=== PATIENT | female | born 1975 | race Caucasian/White ===

== ENCOUNTER 2022-01-02 13:47 | Outpatient (REF) | payer OTHER, SELFPAY ==
[2022-01-02 23:25] LABS: CT PCR NOT DETECTED (Not Detect.); NG PCR NOT DETECTED (Not Detect.)
[2022-01-03 13:20] LABS: BV Int Neg Control Negative (Negative); BV Int Pos Control Positive (Positive)
[2022-01-05 14:23] LABS: HPV mRNA E6/E7 rflx Not Detected (Not Detected)
== END 2022-01-02 13:48 | disposition home or self-care (01) ==
LOC: HO.LAB 13:47
PROVIDERS: Visit Provider Advanced Practice Midwife
DX: Z01.419 Encounter for gynecological examination (general) (routine) without abnormal findings (principal); Z11.51 Encounter for screening for human papillomavirus (HPV); Z20.2 Contact with and (suspected) exposure to infections with a predominantly sexual mode of transmission
CPT/HCPCS: 87480; 87491; 87510; 87591; 87624; 87660; 88142

== ENCOUNTER 2022-01-30 07:57 | Outpatient (REF) | payer OTHER, SELFPAY ==
--- NOTE | ~2022-01-30 | MM_ITS ---
EXAMINATION: MM SCREENING DIGITAL BREAST TOMOSYNTHESIS, BILATERAL CLINICAL INFORMATION: Screening. Asymptomatic. The lifetime risk of breast cancer based on the Tyrer-Cuzick Model is 10.7%. COMPARISON: Mammography: None TECHNIQUE: Digital breast tomosynthesis is performed in both the craniocaudal and mediolateral oblique views along with computer-aided detection (CAD). Synthesized 2D images are generated from the tomosynthesis. FINDINGS: There are scattered areas of fibroglandular density (ACR BI-RADS breast composition Category b). There are no significant masses, abnormal calcifications, or other abnormalities. MM/MM tomosynthesis screening BI IMPRESSION: There are no significant changes from prior study. ASSESSMENT: BI-RADS 1: Negative RECOMMENDATION: Routine annual mammography screening. This patient's information was entered into a reminder system with a target due date for their next mammogram.
== END 2022-01-30 07:58 | disposition home or self-care (01) ==
LOC: HO.MAMMO 07:57
PROVIDERS: PCP Family Medicine; Visit Provider Advanced Practice Midwife
DX: Z12.31 Encounter for screening mammogram for malignant neoplasm of breast (principal)
CPT/HCPCS: 77063; 77067

== ENCOUNTER 2023-01-06 11:32 | Outpatient (REF) | payer OTHER, SELFPAY ==
[2023-01-07 12:30] LABS: BV Int Neg Control Negative (Negative); BV Int Pos Control Positive (Positive)
== END 2023-01-06 11:33 | disposition home or self-care (01) ==
LOC: HO.LNP 11:32
PROVIDERS: PCP Family Medicine; Visit Provider Advanced Practice Midwife
DX: Z01.419 Encounter for gynecological examination (general) (routine) without abnormal findings (principal); N89.8 Other specified noninflammatory disorders of vagina; E66.9 Obesity, unspecified
CPT/HCPCS: 87480; 87510; 87660

== ENCOUNTER 2023-03-26 11:05 | Outpatient (REF) | payer OTHER, SELFPAY | END 2023-03-26 11:06 | disposition home or self-care (01) | LOC: HO.LNP 11:05 | PROVIDERS: PCP Family Medicine; Visit Provider Advanced Practice Midwife | DX: N93.9 Abnormal uterine and vaginal bleeding, unspecified (principal) | CPT/HCPCS: 81025 ==

== ENCOUNTER 2023-03-26 12:09 | Outpatient (REF) | payer OTHER, SELFPAY ==
[2023-03-26 12:30] LABS: Hemoglobin 14.5 g/dl (12.0-16.0); Mean Corpuscular Hemoglobin 29.7 pg (27.0-33.0); Mean Corpuscular Volume 90.2 fL (80.0-98.0); Mean Platelet Volume 10.3 fL (9.4-12.3); Platelet Count 179 X10*3/uL (160-400); Red Blood Count 4.88 X10*6/uL (4.20-5.50); White Blood Count 5.7 X10*3/uL (4.8-10.8)
[2023-03-26 13:19] LABS: TSH reflex Free T4 2.51 uIU/mL (0.32-4.0)
[2023-03-26 18:44] LABS: CT PCR NOT DETECTED (Not Detect.); NG PCR NOT DETECTED (Not Detect.)
[2023-03-28 09:54] LABS: Follicle Stimulating Hormone 53.9 mIU/mL; Lutenizing Hormone 16.3 mIU/mL
== END 2023-03-26 12:10 | disposition home or self-care (01) ==
LOC: HO.LAB 12:09
PROVIDERS: PCP Family Medicine; Visit Provider Advanced Practice Midwife
DX: N93.9 Abnormal uterine and vaginal bleeding, unspecified (principal); Z20.2 Contact with and (suspected) exposure to infections with a predominantly sexual mode of transmission
CPT/HCPCS: 0353U; 83001; 83002; 84443; 85027

== ENCOUNTER 2023-03-27 13:46 | Outpatient (REF) | payer OTHER, SELFPAY ==
--- NOTE | ~2023-03-27 | US_ITS ---
EXAMINATION: US PELVIS TRANSVAGINAL CLINICAL INFORMATION: Abnormal uterine and vaginal bleeding. COMPARISON: OB ultrasound of 12/26/2011 TECHNIQUE: Transcutaneous and transvaginal pelvic ultrasound. Transvaginal scanning was performed after voiding to better evaluate the endometrium and adnexa. FINDINGS: The uterus measures 9.2 x 3.0 x 5.1 cm. The uterus is anteverted. No suspicious abnormalities region of the cervix. The uterine contour is smooth. The endometrium measures 0.4 cm. No evidence of endometrial polyp. About the left uterine body myometrium there is a 6 x 6 x 6 mm hypoechoic lesion with appearance of small fibroid. This does not appear to be adjacent to the endometrium. About the mid anterior fundus there is a 1.3 x 1.0 x 1.1 cm heterogeneous and hypoechoic lesion which abuts the endometrium in a submucosal location. The right ovary measures approximately 2.3 x 1.0 x 1.7 cm. The calculated right ovarian volume is approximately 2.0 mL. No abnormal adnexal findings. The left ovary measures 2.2 x 1.4 x 1.9 cm. The calculated left ovarian volume is approximately 3.0 mL. No abnormal adnexal findings. No free pelvic fluid. US/US pelvic and transvaginal IMPRESSION: Small uterine fibroids with fundal fibroid being submucosal in location.
== END 2023-03-27 13:47 | disposition home or self-care (01) ==
LOC: HO.HMGCX 13:46
PROVIDERS: PCP Family Medicine; Visit Provider Advanced Practice Midwife
DX: N93.9 Abnormal uterine and vaginal bleeding, unspecified (principal)
CPT/HCPCS: 76830; 76856

== ENCOUNTER → 2023-04-11 11:37 | Outpatient (BNVA) | payer OTHER, SELFPAY | PROVIDERS: PCP Family Medicine; Visit Provider Advanced Practice Midwife ==

== ENCOUNTER → 2023-05-08 07:59 | Outpatient (BNVA) | payer OTHER, SELFPAY | PROVIDERS: PCP Family Medicine; Visit Provider Obstetrics & Gynecology ==

== ENCOUNTER 2023-06-12 09:21 | Outpatient (REF) | payer OTHER, SELFPAY ==
[2023-06-12 10:48] LABS: Estimated Average Glucose 97 mg/dL
[2023-06-12 11:10] LABS: Anion Gap 16 (12-20); Blood Urea Nitrogen 15 mg/dL (9-16); Carbon Dioxide 22 mmol/L (22-29); Chloride 107 mmol/L (96-108); Estimated Glomerular Filt Rate > 60; Glucose Fasting 91 mg/dL (60-99); Potassium 4.5 mmol/L (3.3-5.1); Sodium 140 mmol/L (135-145)
== END 2023-06-12 09:22 | disposition home or self-care (01) ==
LOC: HO.LAB 09:21
PROVIDERS: PCP Family Medicine; Visit Provider Family Medicine
DX: I10 Essential (primary) hypertension (principal); E66.9 Obesity, unspecified; R73.9 Hyperglycemia, unspecified
CPT/HCPCS: 36415; 80051; 82565; 82947; 83036; 84520

== ENCOUNTER 2023-08-20 11:22 | Outpatient (REF) | payer OTHER, SELFPAY ==
--- NOTE | ~2023-08-20 | XR_ITS ---
EXAMINATION: XR LUMBOSACRAL SPINE CLINICAL INFORMATION: 48-year-old with back pain. COMPARISON: 03/06/2017 x-rays. TECHNIQUE: Three views of the lumbosacral spine. FINDINGS: There is 3 mm of 5 grade 1 anterior spondylolisthesis at L3-L4, stable in appearance. Otherwise, the lumbosacral spine is anatomically aligned, stable in appearance with stable vertebral body heights and no interval compression fractures. Multilevel bilateral lower lumbar facet arthropathy is largely stable in appearance. The intervertebral disc space heights are well maintained, stable in appearance. There is anterior marginal spondylosis at T11-T12, unchanged with focal calcification of the anterior longitudinal ligament. The visualized SI joints are symmetric and intact and stable in appearance. XR/XR lumbar spine 2-3V IMPRESSION: 1. [id number]-[id number] degrees of bilateral lower lumbar facet arthropathy, similar to the previous exam. 2. No significant disc space height loss. 3. Stable mild grade 1 spondylolisthesis at L3-L4.
== END 2023-08-20 11:23 | disposition home or self-care (01) ==
LOC: HO.XRAY 11:22
PROVIDERS: PCP Family Medicine; Visit Provider Family Medicine
DX: M54.50 Low back pain, unspecified (principal)
CPT/HCPCS: 72100

== ENCOUNTER 2025-08-23 09:22 | Outpatient (AMB) | payer OTHER, SELFPAY ==
--- NOTE | 2025-08-23 09:09 | A.OFFPC_ITS ---
Vital Signs 08/23/25 09:28 Height 5 ft 4 in Weight 218 lb BMI 37.4 BP 126/88 Blood Pressure Location Lt brachial Position Sitting Respiration 18 Pulse 78 Pulse Source Pulse Oximeter Temp 97.9 F Temp Source Temporal Artery Scan Pulse Oximetry (%) 97 Oxygen Delivery Method Room Air Intake Visit Reasons: Physical - Dr. Wasserman pt. 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: No Accompanied by: Self / Same As Patient Allergies No Known Allergies Allergy (Verified 08/23/25 09:09) Tobacco use date assessed: 08/23/25 Dental Screening Dental Screen Date: 08/23/25 Did you have a dental visit in the last 12 months?: Yes Did you have a dental problem in the last 6 months where you did not have access to dental care?: No Was dental information given to patient?: Patient has dentist HPI HPI Comments History of Present Illness Details The patient is a 50-year-old female presenting with multiple concerns including significant shoulder pain, depressive symptoms, anxiety, and menopau maryjo complaints. She reports the shoulder pain began several weeks ago after she attempted to help her father up after a fall, potentially straining her shoulder. The pain, which she describes as a ?zinging? sensation, persists despite the application of ice and has not improved over time. The pain intensifies with certain movements, particularly in the shoulder's back motion. The patient also reports experiencing emotional instability, frequently crying and feeling overwhelmed due to stressors in her life, including her father's recent illness and hospitalization, a demanding job, and personal transitions like moving home and selling a house. She acknowledges worsening anxiety and depressive symptoms over the past month, including loss of interest in activities, persistent feelings of sadness and hopelessness, fatigue, and poor concentration. Her anxiety is characterized by restlessness and irritability. Additionally, the patient has not menstruated due to menopause and describes sym ptoms consistent with menopausal syndrome, including weight gain and hot flashes. Notably, she has a medical history of chronic back pain related to lumbar disc issues, which previously led to limitations in her ability to run?a favored form of exercise and stress relief. Medical History: - Major Depressive Disorder treated with lorazepam in the past - Generalized Anxiety Disorder - Menopausal Syndrome - Chronic Back Pain due to Lumbar Disc D isplacement at L5-L6 - History of Anxiety and Depression - Calcium buildup at the elbow causing s welling Surgical History: - Elbow surgery for calcium buildup Medications: - Lorazepam: previously used for anxiety management - Ativan: previously used for anxiety ma nagement Family History: - Father with history of recent heart at tack - Father with diabetes - No family history of cancer - Brother , relevant psychiatric history unknown Social: - 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 - Family Status: Primary caregiver for i ll father; brother passed in 2007 - Substance Use: Uses marijuana edibles; denies cigarette use - Exercise: Limited due to back pain; pr eviously engaged in running - Stressors: High job stress, caregiver responsibilities for father - Lifestyle: Experienced significant caroline ght gain related to menopause PFS Medical History (Updated 08/23/25 @ 10:09 by Patrick Caballero MD) Left shoulder pain Major depressive disorder Generalized anxiety disorder Depression with anxiety Right elbow tendonitis Social History Housing: House Patient Tobacco Use Status: Never used Tobacco e-Cigarette/Vaping Use: Never Used service: No Current occupational status: employed Current occupation: [employer] Female Reproductive History Menstrual Age of Menarche: 13 Questionnaire PHQ-9 Over the last 2 weeks, how often have you been bothered by any of the following problems? 1. Little interest or pleasure in doing things: nearly every day 2. Feeling down, depressed, or hopeless: nearly every day 3. Trouble falling or staying asleep, or sleeping too much: nearly every day 4. Feeling tired or having little energy: nearly every day 5. Poor appetite or overeating: nearly every day 6. Feeling bad about yourself - or that you are a failure or have let yourself or your family down: nearly every day 7. Trouble concentrating on things, such as reading the newspaper or watching television: more than half the days 8. Moving or speaking so slowly that other people could have noticed. Or the opposite - being so fidgety or restless that you have been moving around a lot more than usual: not at all 9. Thoughts that you would be better off or of hurting yourself in some way: several days Total score: 21 Depression Screening Interpretation: Positive Depression Screening Done: Yes 30799 - PHQ-9 Billing: Yes Source: Developed by Drs. Jd L. Tanisha Garcia Kurt Kroenke and colleagues, with an educational susan from [employer]. Thrive Questionnaire Date Thrive assessed: 08/23/25 I am a: Patient What is your living situation today?: I have a steady place to live Within the past 12 months, did the food you bought not last and you didn't have the money to get more?: Never true Within the past 12 months, did you worry whether your food would run out before you got money to buy more?: Never true Do you have trouble paying for medicines?: No Do you have trouble getting transportation to medical appointments?: No Do you have trouble paying your heating and electricity bill?: No Do you have trouble taking care of your child, family member or friend?: No Do you have trouble with day-to-day activities such as bathing, preparing meals, shopping, managing finances, etc.?: No Are you currently unemployed and looking for a job?: No Are you interested in more education?: No THRIVE Score: 0 AUDIT C Alcohol Use Questionnaire (AUDIT-C) 1. How often do you have a drink containing alcohol?: Monthly or less 2. How many drinks containing alcohol do you have on a typical day when you are drinking?: 1 or 2 3. How often do you have six or more drinks on one occasion?: Never Total Score: 1 Score Reviewed/Action Taken: Yes EVELYNE-7 AMB Questionnaire EVELYNE-7 Date EVELYNE - 7 assessed: 08/23/25 Feeling nervous, anxious, or on edge: 3 = Nearly every day Not being able to stop or control worryin = Nearly every day Worrying too much about different things: 3 = Nearly every day Trouble relaxin = Several days Being so restless that it is hard to sit still: 3 = Nearly every day Becoming easily annoyed or irritable: 3 = Nearly every day Feeling afraid as if something awful might happen: 3 = Nearly every day Total EVELYNE-7 score (0-4 normal; 5-9 mild; 10-14 moderate; 15-21 severe): 19 Source: Developed by Tanisha Green, Bean Lopez and colleagues, with an educational susan from [employer]. EVELYNE-7 Assessment Billing EVELYNE-7 Assessment Tool: EVELYNE-7 Assessment 45444 Review of Systems Const Details: - Musculoskeletal: Reports severe shoulder pain, chronic back pain - Psychiatric: Reports daily feelings of sadness, anxiety, emotional lability, decreased interest and pleasure in activities, irritability, and consistent restlessness - Neurological: Reports difficulty concentrating - Metabolic/Endocrine: Reports weight gain, hot flashes All systems reviewed & are unremarkable except as reviewed in HPI and above Physical exam (Primary Care) Vital Signs: Last Vital Signs Temp 97.9 F 08/23/25 09:28 Pulse 78 08/23/25 09:28 Resp 18 08/23/25 09:28 BP 126/88 08/23/25 09:28 Pulse Ox 97 08/23/25 09:28 Oxygen Delivery Method Room Air 08/23/25 09:28 BMI result Body Mass Index 37.4 Tobacco/Smoking Status: Tobacco use Status Tobacco use date assessed 08/23/25 08/23/25 09:10 Patient Tobacco Use Status Never used Tobacco 08/23/25 09:10 e-Cigarette/Vaping Use Never Used 08/23/25 09:10 Depression Screening Interpretation: Positive Const Other: General: +Alert and oriented, Well nourished, No acute distress. Eye: Pupils are equal, round and reactive to light, Intact accommodation, Extraocular movements are intact, Normal conjunctiva, Vision unchanged. HENT: Normocephalic, Atraumatic, Tympanic membranes are clear, Normal hearing, Oral mucosa is moist, No pharyngeal erythema, Ear canals patent. Respiratory: Lungs CTA bilaterally, No wheeze, Respirations are non-labored. Cardiovascular: Regular rate, Regular rhythm, S1 auscultated, S2 auscultated, No murmur, Good pulses equal in all extremities, Normal peripheral perfusion, No edema. Gastrointestinal: Soft, Non-tender, Non-distended, Normal bowel sounds, No organomegaly. Musculoskeletal: Limited range of motion in the shoulder, Pain in the shoulder, No swelling, No deformity, Normal gait. Integumentary: Warm, Dry, [place], Intact, Stable mole on the back of the neck. Neurologic: Alert, Oriented, Normal sensory, Normal motor function, No focal defects, Cranial Nerves II-XII are grossly intact, Normal deep tendon reflexes. Psychiatric: Cooperative, Mood is depressed and anxious, Normal judgment. Coding Level of Care Code New Pt Level 4 (08887) Diagnoses Generalized anxiety disorder F41.1 Severe episode of recurrent major depressive disorder, without psychotic features F33.2 Major depression recurrence: recurrent Active/Remission status: currently active Major depression episode severity: severe Psychotic features: without psychotic features Acute pain of left shoulder M25.512 Chronicity: acute Additional Codes PHQ-9 - 36894 - PHQ-9 Billing: Yes ([id number]) EVELYNE-7 Assessment Billing - EVELYNE-7 Assessment Tool: EVELYNE-7 Assessment 29375 ([id number]) Assessment & Plan Assessment & Plan (1) Generalized anxiety disorder: Comment: - Utilize sertraline for anxiety management, addressing both depressive and anxiety symptoms. - Encourage contacting a therapist familiar with patient's history for further psychological intervention. Code(s): F41.1 - Generalized anxiety disorder Category: Medical (2) Major depressive disorder: Comment: - Initiate sertraline 50 mg once daily, recognizing the delayed onset of 6 weeks. - Prescribe lorazepam (Ativan) as a bridge for anxiety management, limited to 15 pills. - Recommend contact with previous therapist for psychological support. Code(s): F32.9 - Major depressive disorder, single episode, unspecified Category: Medical Qualifiers: Major depression recurrence: recurrent Active/Remission status: currently active Major depression episode severity: severe Psychotic features: without psychotic features Qualified Code(s): F33.2 - Major depressive disorder, recurrent severe without psychotic features (3) Left shoulder pain: Comment: - Prescribe cyclobenzaprine for muscle relaxation; advise against concurrent use with Ativan. - Recommend continuation of ice application and regular shoulder movement. - Re-evaluate if persistent pain or functional limitations develop. Code(s): M25.512 - Pain in left shoulder Category: Medical Qualifiers: Chronicity: acute Qualified Code(s): M25.512 - Pain in left shoulder Plan: Healthcare Maintenance: - Discussed necessity of colonoscopy for cancer screening, recognizing procedural concerns. - Encouraged lifestyle modifications to aid in menopause symptom management. Patient was informed and verbally consented to the use of an ambient scribe for clinic note documentation during this visit. Plan I discussed with the patient her multiple ongoing concerns including shoulder pain, depressive and anxiety symptoms, and menopausal management. We reviewed the initiation of sertraline as a long-term solution for her depression and anxiety, emphasizing the delayed onset. I prescribed a limited quantity of lorazepam to manage acute anxiety given her aversion to medications but recognizing her current acute needs. We examined the shoulder, suggesting cyclobenzaprine to ease muscle tension. I advised on health maintenance screenings like colonoscopy to mitigate her anxiety about the procedure. I acknowledged the stress linked to caregiving duties and suggested professional therapy revisitation for emotional support. I encouraged self-care and task delegation to lessen her burdens. Orders: Orders Complete Blood Count Auto Diff Today Z76.89 - Persons encountering health services in other specified circumstances Hemoglobin A1c Today Z76.89 - Persons encountering health services in other specified circumstances Hepatitis A,B,C Profile Today Z76.89 - Persons encountering health services in other specified circumstances Estrogen Today Z76.89 - Persons encountering health services in other specified circumstances Comprehensive Met. Panel Today Z76.89 - Persons encountering health services in other specified circumstances HIV Ab/Ag Today Z76.89 - Persons encountering health services in other specified circumstances Lipid Panel Today Z76.89 - Persons encountering health services in other specified circumstances Syphilis Screen Today Z76.89 - Persons encountering health services in other specified circumstances TSH reflex Free T4 Today Z76.89 - Persons encountering health services in other specified circumstances Vitamin D 25-OH Total Today Z76.89 - Persons encountering health services in other specified circumstances Follicle Stimulating Hormone Today Z76.89 - Persons encountering health services in other specified circumstances Lutenizing Hormone Today Z76.89 - Persons encountering health services in other specified circumstances Referrals Psychiatry Referral F41.8 - Other specified anxiety disorders Medications: New cyclobenzaprine 5 mg PO TID PRN 30 tabs 0RF muscle spasm lorazepam (Ativan) 0.5 mg PO DAILY PRN 15 tabs 0RF anxiety sertraline 50 mg PO DAILY 90 tabs 0RF Patient Instructions: - Begin taking sertraline 50 mg daily for depression and anxiety. - Use lorazepam sparingly, only when necessary for severe anxiety. - Apply ice and continue movement exercises for shoulder pain. - Avoid using lorazepam and cyclobenzaprine at the same time. - Schedule and attend necessary lab work to evaluate hormonal status. - Contact therapist for emotional support. - Consider assessing options for family medical leave to alleviate work stress.
[2025-08-23 09:28] VITALS: BP 126/88; PULSE 78; RESP 18; TEMP 36.6; O2SAT 97; BMI 37.4
== END 2025-08-23 10:09 | disposition home or self-care (01) ==
PROVIDERS: PCP Student in an Organized Health Care Education/Training Program; Visit Provider Student in an Organized Health Care Education/Training Program
DX: F41.1 Generalized anxiety disorder (principal); F33.2 Major depressive disorder, recurrent severe without psychotic features; M25.512 Pain in left shoulder

== ENCOUNTER 2025-08-23 10:07 | Outpatient (REF) | payer OTHER, SELFPAY ==
[2025-08-23 13:15] LABS: MANUAL DIFF FLAG NO
[2025-08-23 13:37] LABS: Hematocrit 42.8 % (37.0-47.0); Hemoglobin 14.0 g/dl (12.0-16.0); Imm Gran Abs Auto 0.02 X10*3/uL (0.00-0.03); Imm Gran Pct Auto 0.3 % (0.0-0.4); Lymphocytes Absolute Auto 2.3 X10*3/uL (1.2-4.9); Mean Corpuscular HGB Conc 32.7 g/dl (31.0-35.0); Mean Corpuscular Hemoglobin 29.6 pg (27.0-33.0); Mean Corpuscular Volume 90.5 fL (80.0-98.0); NRBC Abs Auto 0.000 X10*3/uL (0.0-0.012); NRBC Pct Auto 0.0 /100WBC (0.0-0.2); Platelet Count 176 X10*3/uL (160-400); Red Blood Count 4.73 X10*6/uL (4.20-5.50); White Blood Count 7.5 X10*3/uL (4.8-10.8)
[2025-08-23 14:03] LABS: Alanine Aminotransferase 24 U/L (0-31); Albumin Level 4.7 g/dL (3.5-5.0); Anion Gap 12 (12-20); Aspartate Amino Transferase 18 U/L (5-31); Blood Urea Nitrogen 13 mg/dL (9-16); Calcium 9.4 mg/dL (8.4-10.2); Carbon Dioxide 27 mmol/L (22-29); Chloride 109 mmol/L (96-108); Cholesterol 184 mg/dL (<200); Estimated Glomerular Filt Rate > 60; HDL Cholesterol 58 mg/dL (>40); Potassium 4.1 mmol/L (3.3-5.1); Sodium 144 mmol/L (135-145); Total Protein 7.2 g/dL (6.5-8.0); Triglycerides 72 mg/dL (<150)
[2025-08-23 14:16] LABS: Alkaline Phosphatase 62 U/L (39-117)
[2025-08-24 03:13] LABS: Syphilis Screen Nonreactive (Nonreactive)
[2025-08-24 04:03] LABS: HBS Num1 0.37 mIU/mL (0-7.99); HBc Num1 0.05 S/CO (0.00-0.79); HBsAGNum1 0.41 S/CO (0.00-0.99); HIV Num 1 0.05 S/CO (0.00-0.99); Hepatitis A Antibody IgM 0.18 Index (0-0.79); Hepatitis B Surface Antigen Negative (Negative); ~HepC Num1 0.06 S/CO (0.00-0.79); ~Hepatitis A Antibody IgM Nonreactive (Nonreactive); ~Hepatitis B Surface Antibody NONREACTIVE (Nonreactive); ~Hepatitis C Antibody Nonreactive (Nonreactive)
[2025-08-24 05:58] LABS: Follicle Stimulating Hormone 80.3 mIU/mL
== END 2025-08-23 10:08 | disposition home or self-care (01) ==
LOC: HO.10HDL 10:07
PROVIDERS: Visit Provider Student in an Organized Health Care Education/Training Program
DX: F33.2 Major depressive disorder, recurrent severe without psychotic features (principal); F41.1 Generalized anxiety disorder; F41.8 Other specified anxiety disorders; M25.512 Pain in left shoulder; Z76.89 Persons encountering health services in other specified circumstances; Z13.1 Encounter for screening for diabetes mellitus
CPT/HCPCS: 36415; 80053; 80061; 82306; 82672; 83001; 83002; 83036; 84443; 85025; 86704; 86706; 86709; 86780; 86803; 87340; 87389; 96127

== ENCOUNTER 2025-09-08 14:35 | Outpatient (AMB) | payer OTHER, SELFPAY ==
--- NOTE | 2025-09-08 14:38 | MHC.OFFVISPS ---
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 Allergies No Known Allergies Allergy (Verified 08/23/25 09:09) Medication List - Last Reconciled 09/08/25 by Flor Wyman APRN cnesdqa-[id number] 250-250-65 mg (Excedrin Extra Strength) 2 tabs PO Q6H PRN atorvastatin (Lipitor) 10 mg PO BEDTIME cyclobenzaprine 5 mg PO TID PRN ibuprofen 800 mg PO Q6H PRN lorazepam (Ativan) 0.5 mg PO DAILY PRN sertraline 50 mg PO DAILY HPI- Psychiatric Chief Complaint: consultation HPI Narrative: Pt referred by PCP for evaluation re: anxiety and depression, noted worsening symptoms: emotional instability, frequently crying and feeling overwhelmed due to stressors in her life. Previously treated with lorazepam for anxiety.PCP recently started sertraline. Pt reports she feels very depressed and anxious every day. PHQ9=22 and GAD7= 20. She reports feeling depresssed and anxiosu for past year and its been getting worse; she reports a number of stressors: she sold her home in 2019 to move in and take care of her parents. he r father has suffered a series of medical problems and he is needing more direct care. pts mother also needs help and has a history of being very critical and mean to pt. Pt reports mother has untreated Bipolar disorder. 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 She depended on the flexibility to take care of parents and stay connected to family. 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 Sheis tearful in office. She reports passive SI with tarik chavarriam as maybe she would be better off . She denies any intention or plan to harm herself. She reports anhedonia and loss of interest in activities; she reports early am waking. She has no motivation to exercise which she has always been very active in past. She reports a weight gin of 50-60 pounds in 2 yrs. 25 pound weight gain in past 6 months. Past Psychiatric History: out pt therapy first time in 2007 after brother . She helped to raise his 7 yr old daughter; Subjective Subjective Medication Compliance: Yes Side effects from medications: No Review of Systems Medical Review of Systems: unchanged Mental Status Exam Mental Status Exam Patient Appearance: Well Grooomed, Fatigued and Appropriate Patient Orientation: Person, Place, Time and Situation Level of Consciousness: Awake, Appropriate and Alert Patient Behavior: Appropriate, Talkative, Fatigued and Crying Mood Description: Depressed, Anxious and Sad Affect Description: Depressed, Anxious and Sad Patient Cognition Impaired: No Ability to Follow Directions: Good Speech Pattern: Clear and Difficulty Finding Words Memory Description: Intact Hallucinations: None Delusions: Not Present Thought Process: Intact, Racing and Rumination Thought Content: positive for Intact, positive for Preoccupation and positive for Suicidal Ideation (pt reports passive ideation with no plan or intent) Judgement: Good Assessment and Plan Assessment & Plan (1) Major depressive disorder: Status: Acute Qualifiers: Major depression recurrence: recurrent Active/Remission status: currently active Major depression episode severity: severe Psychotic features: without psychotic features Qualified Code(s): F33.2 - Major depressive disorder, recurrent severe without psychotic features Code(s): F32.9 - Major depressive disorder, single episode, unspecified (2) Generalized anxiety disorder: Status: Acute Code(s): F41.1 - Generalized anxiety disorder Plan Continue zoloft 50mg - has only been on one week continue lorazepam prn panic start magnesium glycinate 200mg at bedtime stay hydrated consider therpay consider TMS treatment as pt does not like idea of pharmaceuticals return in 3 weeks Counseling and coordination of Care Pt. Self Management counseling: Exercise, Maintenance-social rhythm, Mod caffeine/ETOH intake, Nutrition education and improvement, Sleep hygiene and General coping skills Medication management counseling: Effectiveness, Side effects, Dosing range, Duration, Drug interaction and Adherence Diagnosis and Prognosis Counseling: Accuracy of diagnosis, Prognosis over time, Impact of diagnosis on life functions, Impact of family relationship, Problematic behaviors secondary to diagnosis and Adequacy of current interventions Details: I spent 90 minutes reviewing the record including PCP note, diagnostics, and seeing the patient and documenting in the medical record. Counseling provided to the patient/caregiver as outlined below. Addressed patient/caregiver concerns regarding current medication regime including effective adherence. Addressed patient/caregiver concerns regarding diagnosis and prognosis including accuracy of diagnosis, prognosis over time, impact of diagnosis. Addressed patient/caregiver concerns regarding impact of recent stressors. 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 On medical leave currently Substance History: no tobacco, ETOH 1 x a month or less, THC at bedtime , no recreational or illicit substances. Trauma History: loss of brothee , mother's untreated bipolar do. father's recent near medical crisis Coding Level of Care Code Psych Diag Eval w/Med (46372) Diagnoses Severe episode of recurrent major depressive disorder, without psychotic features F33.2 Major depression recurrence: recurrent Active/Remission status: currently active Major depression episode severity: severe Psychotic features: without psychotic features Generalized anxiety disorder F41.1
== END 2025-09-08 15:49 | disposition home or self-care (01) ==
LOC: HO.HOP 14:35
PROVIDERS: PCP Student in an Organized Health Care Education/Training Program; Visit Provider Clinical Nurse Specialist Psychiatric/Mental Health
DX: F33.2 Major depressive disorder, recurrent severe without psychotic features (principal); F41.1 Generalized anxiety disorder
CPT/HCPCS: 90792

== ENCOUNTER → 2025-09-08 14:35 | Outpatient (BNVA) | payer OTHER, SELFPAY | PROVIDERS: PCP Student in an Organized Health Care Education/Training Program; Visit Provider Clinical Nurse Specialist Psychiatric/Mental Health | DX: F41.1 Generalized anxiety disorder (principal); F33.2 Major depressive disorder, recurrent severe without psychotic features; Z79.899 Other long term (current) drug therapy | CPT/HCPCS: 90792 ==

== ENCOUNTER 2025-10-04 10:36 | Outpatient (AMB) | payer OTHER, SELFPAY ==
--- NOTE | 2025-10-04 10:47 | A.OFFPSYCH_ITS ---
Intake Intake Visit Reasons: f/u consultation Clinical Pharmacist Required: No Allergies No Known Allergies Allergy (Verified 08/23/25 09:09) Medication List - Last Reconciled 10/04/25 by Flor Wmyan APRN [id number] 250-250-65 mg (Excedrin Extra Strength) 2 tabs PO Q6H PRN atorvastatin (Lipitor) 10 mg PO BEDTIME cyclobenzaprine 5 mg PO TID PRN ibuprofen 800 mg PO Q6H PRN lorazepam (Ativan) 0.5 mg PO DAILY PRN sertraline 50 mg PO DAILY HPI- Psychiatric Chief Complaint: f/u consultation HPI Narrative: Pt here for follow up re:anxiety and depression. Pthas been taking zoloft 50mg daily consistently. she has noticed a slight decrease in ruminating . She is still very depressed and anxious every day; she started therapy. She reports emotional instability, reactivity, anxiety, frequently crying and feeling overwhelmed. PHQ9=15 down from 22 and GAD7=16 down from 20. 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 He has heart failure and a urine catheter. VNA comes 2 x a week to help car for him but otherwise patient is caring for him and her mother. Pt reports mother has untreated Bipolar disorder. Pt reports she is anxious every day, worries, ruminates, can't sleep and can't focus. She is currently on Leave from work due to mental health. She is tearful in office. She reports passive SI with thoughts such as maybe she would be better off . She denies any intention or plan to harm herself. she reports she hasn't been able to use all of her normal coping skills but is using therapy to try to regulate and get back to her coping skills such as riding her indoor bike and taking walks. She reports anhedonia a nd loss of interest in activities; she reports early am waking. She has no motivation to exercise which she has always been very active in past. She reports a weight gain of 25 # in past 6 months. She is worried her return to work date is October 10 and she does not feel ready to retrun ot work. Past Psychiatric History: out pt therapy first time in 2007 after brother . She helped to raise his 7 yr old daughter; Subjective Subjective Medication Compliance: Yes Side effects from medications: No Review of Systems Medical Review of Systems: unchanged Mental Status Exam Mental Status Exam Patient Appearance: Well Grooomed, Fatigued and Appropriate Patient Orientation: Person, Place, Time and Situation Level of Consciousness: Awake, Appropriate and Alert Patient Behavior: Appropriate, Talkative, Fatigued and Crying Mood Description: Depressed, Anxious and Sad Affect Description: Depressed, Anxious and Sad Patient Cognition Impaired: No Ability to Follow Directions: Good Speech Pattern: Clear, Perseverating, Difficulty Finding Words and Spontaneous Speech Memory Description: Intact Hallucinations: None Delusions: Not Present Thought Process: Intact, Racing and Rumination Thought Content: positive for Obsessional Thoughts, positive for Perseveration, positive for Preoccupation and positive for Suicidal Ideation (pt reports passive ideation with no plan or intent) Judgement: Good Assessment and Plan Assessment & Plan (1) Major depressive disorder: Status: Acute Qualifiers: Major depression recurrence: recurrent Active/Remission status: currently active Major depression episode severity: severe Psychotic features: without psychotic features Qualified Code(s): F33.2 - Major depressive d isorder, recurrent severe without psychotic features Code(s): F32.9 - Major depressive disorder, single episode, unspecified (2) Generalized anxiety disorder: Status: Acute Code(s): F41.1 - Generalized anxiety disorder Plan Increase zoloft 100 mg daily continue lorazepam prn panic start magnesium glycinate 200mg at bedtime stay hydrated continue therapy consider TMS treatment as pt does not like idea of pharmaceuticals support patients continued CARLI from work due to depression and anxiety Medications: New sertraline (Zoloft) 100 mg PO DAILY 90 tabs 0RF Discontinued sertraline Discontinued Reason: Doctor's Order 50 mg PO DAILY 90 tabs 0RF Counseling and coordination of Care Pt. Self Management counseling: Exercise, Maintenance-social rhythm, Mod caffeine/ETOH intake, Nutrition education and improvement, Sleep hygiene and General coping skills Medication management counseling: Effectiveness, Side effects, Dosing range, Duration, Drug interaction and Adherence Diagnosis and Prognosis Counseling: Accuracy of diagnosis, Prognosis over time, Impact of diagnosis on life functions, Impact of family relationship, Problematic behaviors secondary to diagnosis and Adequacy of current interventions Details: I spent 45 minutes reviewing the record, seeing the patient and documenting in the medical record. Counseling provided to the patient/caregiver as outlined below. Addressed patient/caregiver concerns regarding current medication regime including effective adherence. Addressed patient/caregiver concerns regarding diagnosis and prognosis including accuracy of diagnosis, prognosis over time, impact of diagnosis. Addressed patient/caregiver concerns regarding impact of recent stressors. 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 On medical leave currently Substance History: no tobacco, ETOH 1 x a month or less, THC at bedtime , no recreational or illicit substances. Trauma History: loss of brothee , mother's untreated bipolar do. father's recent near medical crisis Coding Level of Care Code Est Pt Level 5 (52860) Diagnoses Severe episode of recurrent major depressive disorder, without psychotic features F33.2 Major depression recurrence: recurrent Active/Remission status: currently active Major depression episode severity: severe Psychotic features: without psychotic features Generalized anxiety disorder F41.1
== END 2025-10-04 11:14 | disposition home or self-care (01) ==
LOC: HO.HOP 10:36
PROVIDERS: PCP Student in an Organized Health Care Education/Training Program; Visit Provider Clinical Nurse Specialist Psychiatric/Mental Health
DX: F33.2 Major depressive disorder, recurrent severe without psychotic features (principal); F41.1 Generalized anxiety disorder
CPT/HCPCS: 99215

== ENCOUNTER 2025-10-31 10:31 | Outpatient (AMB) | payer OTHER, SELFPAY ==
--- NOTE | 2025-10-31 10:40 | A.OFFPSYCH_ITS ---
Intake Intake Visit Reasons: f/u consultation Rn Angiography Required: No Allergies No Known Allergies Allergy (Verified 08/23/25 09:09) Medication List - Last Reconciled 10/31/25 by Flor Wyman APRN [id number] 250-250-65 mg (Excedrin Extra Strength) 2 tabs PO Q6H PRN atorvastatin (Lipitor) 10 mg PO BEDTIME cyclobenzaprine 5 mg PO TID PRN ibuprofen 800 mg PO Q6H PRN lorazepam (Ativan) 0.5 mg PO DAILY PRN sertraline (Zoloft) 100 mg PO DAILY HPI- Psychiatric Chief Complaint: f/u consultation HPI Narrative: Pt is here for follow up re:anxiety and depression. Pt has been taking zoloft 100mg daily consistently. She is tolerating the increased zoloft with only milg GI upset that improves with taking medication with food. She has noticed a s light decrease in reactivity. She is still depressed and anxious every day; she started therapy. She reports bouts of emotional instability, reactivity, anxiety, crying and feeling overwhelmed but they are for shorter periods of time and she can come out of them with some effort; they last afor a few minutes rather than hours. PHQ9=11 down from 15 and 22 and GAD7=13 down from 20. 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 He has heart failure and a urine catheter. He recently fell and needs to see the gerentological physiotherapist this week. Pt reports she is anxious and has a sense of dread every day. she worries, ruminates and can't focus. Sleep is somewhat improved but takes her a long time to initiate sleep finally falling asleep around midnight. She is easily tearful in office. She reports no SI or HI. She denies any intention or plan to harm herself. she reports she hasn't been able to use all of her normal coping skills but thats she has made some progress. She has been able to get out and grocery shop 1 times. she has been able to do some minimal meal prep so is eating a little better; she was able to go to [employer] with her BF. She also travelled to a long time scheduled [employer] tournament with her BF for support. She had to utilize PRN anxiety medication to tolerate but coped well. This outing improved her sense of hope and self esteem. She is trying to get back to exercise. She is using therapy to try to regulate and get back to her coping skills such as riding her indoor bike and taking walks, but has not reached that goal yet. Past Psychiatric History: out pt therapy first time in 2007 after brother . She helped to raise his 7 yr old daughter; Subjective Subjective Medication Compliance: Yes Side effects from medications: No Review of Systems Medical Review of Systems: unchanged Mental Status Exam Mental Status Exam Patient Appearance: Fatigued and Appropriate (casually dressed, easily tearful) Patient Orientation: Person, Place, Time and Situation Level of Consciousness: Awake, Appropriate and Alert Patient Behavior: Appropriate, Cooperative, Restless, Anxious and Crying Mood Description: Depressed, Anxious and Labile Affect Description: Depressed, Anxious, Labile and Sad Patient Cognition Impaired: No Ability to Follow Directions: Good Speech Pattern: Clear, Appropriate, Soft-Spoken, Delayed and Long Pauses Memory Description: Episodic Impaired Hallucinations: None Thought Process: Distracted and Rumination Thought Content: positive for Preoccupation and positive for Disorganized Judgement: Fair Assessment and Plan Assessment & Plan (1) Major depressive disorder: Status: Acute Qualifiers: Active/Remission status: currently active Major depression episode severity: severe Major depression recurrence: recurrent Psychotic features: without psychotic features Qualified Code(s): F33.2 - Major depressive disorder, recurrent severe without psychotic features Code(s): F32.9 - Major depressive disorder, single episode, unspecified (2) Generalized anxiety disorder: Status: Acute Code(s): F41.1 - Generalized anxiety disorder Plan Increase zoloft to 150 mg daily continue lorazepam prn panic start magnesium glycinate 200mg at bedtime stay hydrated continue therapy consider TMS treatment as pt does not like idea of pharmaceuticals support patients continued CARLI from work due to depression and anxiety Counseling and coordination of Care Pt. Self Management counseling: Exercise, Maintenance-social rhythm, Mod caffeine/ETOH intake, Nutrition education and improvement, Sleep hygiene and General coping skills Medication management counseling: Effectiveness, Side effects, Dosing range, Duration, Drug interaction and Adherence Diagnosis and Prognosis Counseling: Accuracy of diagnosis, Prognosis over time, Impact of diagnosis on life functions, Impact of family relationship, Problematic behaviors secondary to diagnosis and Adequacy of current interventions Details: I spent 45 minutes reviewing the record, seeing the patient and documenting in the medical record. Counseling provided to the patient/caregiver as outlined below. Addressed buddy ent/caregiver concerns regarding current medication regime including effective adherence. Addressed patient/caregiver concerns regarding diagnosis and prognosis including accuracy of diagnosis, prognosis over time, impact of diagnosis. Addressed patient/caregiver concerns regarding impact of recent stressors. 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 On medical leave currently Substance History: no tobacco, ETOH 1 x a month or less, THC at bedtime , no recreational or illicit substances. Trauma History: loss of brothee , mother's untreated bipolar do. father's recent near medical crisis Coding Level of Care Code Est Pt Level 5 (97294) Diagnoses Severe episode of recurrent major depressive disorder, without psychotic features F33.2 Active/Remission status: currently active Major depression episode severity: severe Major depression recurrence: recurrent Psychotic features: without psychotic features Generalized anxiety disorder F41.1
== END 2025-10-31 11:18 | disposition home or self-care (01) ==
LOC: HO.HOP 10:31
PROVIDERS: PCP Student in an Organized Health Care Education/Training Program; Visit Provider Clinical Nurse Specialist Psychiatric/Mental Health
DX: F33.2 Major depressive disorder, recurrent severe without psychotic features (principal); F41.1 Generalized anxiety disorder
CPT/HCPCS: 99215